=== PATIENT | male | born 1940 | race Asian ===

== ENCOUNTER 2021-06-01 13:22 | Emergency (ER) | payer MEDICARE, OTHER ==
[~2021-06-01] VITALS: Ht 170.2 cm; Wt 68.0 kg
--- NOTE | 2021-06-01 13:30 | NUR ---
DR CRONIN MADE AWARE OF PT ALOC, STATES HE WILL PLACE HEAD CT. CT CALLED FOR STAT HEAD CT
[2021-06-01 13:34] VITALS: BP 126/73
--- NOTE | 2021-06-01 13:40 | NUR ---
80 y/o M ARMANDO from street in the [facility] for ALOC. Per EMS, patient unable to verbalize complaint due to being Estonian speaking. Upon assessment, patient able to follow basic commands and reports he is hard of hearing. Reports headache and pain to R knee, states he did not fall. Unable to obtain pain assessment, history, allergies, medications. No trauma noted to head, neck, back, UE/LE. AccuChek 104. Patient with diaper. PMH/Sx/Meds: Unable to obtain NKA
--- NOTE | 2021-06-01 13:40 | NUR ---
EMT at bedside for EKG.
--- NOTE | 2021-06-01 13:45 | NUR ---
Lab at bedside.
--- NOTE | 2021-06-01 13:53 | NUR ---
PT BEING TAKEN TO CT AT THIS TIME
[2021-06-01] MEDS ORDERED: NACL 0.9% 1,000 ML IV ONE (14:00)
--- NOTE | 2021-06-01 14:06 | NUR ---
Patient returned from CT via gurney; placed back onto pvc monitor.
[2021-06-01 14:35] LABS: BASOPHILS # (AUTO) 0.1 K/uL (0.00-0.22); BASOPHILS % (AUTO) 0.8 % (0.0-2.0); EOSINOPHILS # (AUTO) 0.2 K/uL (0-0.4); EOSINOPHILS % (AUTO) 2.9 % (0.0-4.0); HEMATOCRIT 38.8 % (36-52); HEMOGLOBIN 12.8 g/dL (12.0-18.0); LYMPHOCYTES # (AUTO) 1.5 K/uL (2.0-11.5); LYMPHOCYTES % (AUTO) 21.8 % (20.5-51.1); MEAN CORPUSCULAR HEMOGLOBIN 31 pg (27-31); MEAN CORPUSCULAR HGB CONC 33 g/dL (33-37); MEAN CORPUSCULAR VOLUME 92.6 fL (80-94); MONOCYTES # (AUTO) 0.5 K/uL (0.8-1.0); MONOCYTES % (AUTO) 7.7 % (1.7-9.3); NEUTROPHILS # (AUTO) 4.5 K/uL (1.8-7.7); NEUTROPHILS % (AUTO) 66.8 % (42.2-75.2); PLATELET COUNT (AUTO) 309 K/uL (140-450); RED BLOOD CELL COUNT(AUTO) 4.19 MIL/uL (4.20-6.10); RED CELL DISTRIBUTION WIDTH 13.2 % (11.6-13.7); WHITE BLOOD COUNT (AUTO) 6.8 K/uL (4.8-10.8)
--- NOTE | 2021-06-01 14:50 | NUR ---
Malika richmond, urine sample collected, walked to lab and handed to CPT.
[2021-06-01 15:11] LABS: APPEARANCE,URINE CLEAR (CLEAR); BILIRUBIN,URINE NEGATIVE (NEGATIVE); BLOOD, URINE NEGATIVE (NEGATIVE); LEUKOCYTE ESTERASE ,URINE NEGATIVE (NEGATIVE); NITRITE, URINE NEGATIVE (NEGATIVE); PH,URINE 6.5 (5.0-9.0); UGLUCOSE NEGATIVE (NEGATIVE)
[2021-06-01 15:11] LABS: ALBUMIN 2.9 g/dL (3.4-5.0); ANION GAP 6.4 (8-16); ASPARTATE AMINOTRANSFERASE 19 U/L (15-37); CARBON DIOXIDE 31.3 mmol/L (21-32); CHLORIDE 104 mmol/L (98-107); CREATININE 0.9 mg/dL (0.6-1.3); GLUCOSE 105 mg/dL (74-106); POTASSIUM 4.7 mmol/L (3.5-5.1); SODIUM SERUM 137 mmol/L (136-145); TOTAL BILIRUBIN 0.4 mg/dL (0.0-1.0); UREA NITROGEN, BLOOD 11 mg/dL (7-18)
[2021-06-01 15:22] LABS: COLOR,URINE YELLOW (YELLOW)
--- NOTE | 2021-06-01 15:35 | NUR ---
Patient pulled out gown, IV, and monitoring specialist. Bleeding controlled by 2x2 gauze. Patient reoriented to bed. Linens, gown and diaper changed.
--- NOTE | 2021-06-01 15:36 | NUR ---
Spoke with Charles (son) in who does not remember med hx but will return in 10m with information. Son states father has history of walking out of home and has form of memory loss. Unable to obtain PMH/Meds outside of DM. Son at bedside states father is acting appropriately and is normally able to ambulate to around home.
[2021-06-01 15:55] VITALS: BP 172/73
--- NOTE | 2021-06-01 16:04 | NUR ---
Contacted son for transportation statse he will be here in 10 minutes.
--- NOTE | 2021-06-01 16:05 | NUR ---
Patient able to demonstrate ability to ambulate with assistance. Denies dizziness, loss of balance.
--- NOTE | 2021-06-01 16:20 | NUR ---
Patient discharged with v/s stable. Written and verbal after care instructions given and explained. Patient verbalized understanding. Wheel Chair Assisted with to car by son and mother. All questions addressed prior to discharge. Advised to follow up with PMD.
[2021-06-01 17:34] LABS: BARBITURATE, URINE NEGATIVE ng/ml (NEG <=200); BENZODIAZEPINE, URINE NEGATIVE ng/mL (NEG <=200); CANNABINOID, URINE NEGATIVE ng/mL (NEG <=50); COCAINE, URINE NEGATIVE ng/mL (NEG <=300); OPIATE, URINE NEGATIVE ng/mL (NEG <=2000); PHENCYCLIDINE SCREEN,URINE NEGATIVE ng/mL (NEG <=25)
== END 2021-06-01 16:20 | disposition home or self-care (01) ==
LOC: MED 13:22
DX: R41.82 Altered mental status, unspecified (principal); F03.90 Unspecified dementia, unspecified severity, without behavioral disturbance, psychotic disturbance, mood disturbance, and anxiety; R94.31 Abnormal electrocardiogram [ECG] [EKG]
CPT/HCPCS: 36415; 70450; 71045; 80053; 80305; 81003; 82140; 83880; 84484; 85025; 85610; 85730; 87426; 93005; 96360; 99285; G0482; J7030

== ENCOUNTER 2021-06-13 09:42 | Emergency (ER) | payer MEDICARE, OTHER ==
[~2021-06-13] VITALS: Ht 154.9 cm; Wt 71.2 kg
[2021-06-13 09:53] VITALS: BP 146/78
--- NOTE | 2021-06-13 09:57 | NUR ---
PT TO STAY IN TENT.
--- NOTE | 2021-06-13 10:57 | NUR ---
PT TAKEN TO XR VIA W/C.
--- NOTE | 2021-06-13 12:36 | NUR ---
NO NURSING INTERVENTIONS DONE, NO COMPLETE ASSESSMENT NEEDED.
[2021-06-13 12:56] VITALS: BP 136/72
--- NOTE | 2021-06-13 12:57 | NUR ---
Patient discharged with v/s stable. Written and verbal after care instructions given ABDOMINAL PAIN and explained. Patient verbalized understanding. Ambulatory with steady gait. All questions addressed prior to discharge. Advised to follow up with PMD.
== END 2021-06-13 12:57 | disposition home or self-care (01) ==
LOC: MED 09:42
DX: R14.0 Abdominal distension (gaseous) (principal); R10.9 Unspecified abdominal pain
CPT/HCPCS: 71045; 99283; Q0092

== ENCOUNTER 2022-03-31 11:15 | Inpatient (IN) | payer OTHER, MEDICARE ==
[~2022-03-31] VITALS: Ht 167.6 cm; Wt 51.7 kg
[~2022-03-31 11:15] MED LIST: MIRABULK PO; PANT40EC PO
[2022-03-31 11:22] VITALS: BP 136/57
[2022-03-31 12:23] LABS: BASOPHILS % (AUTO) 0.7 % (0.0-2.0); EOSINOPHILS # (AUTO) 0.2 K/uL (0-0.4); EOSINOPHILS % (AUTO) 2.9 % (0.0-4.0); HEMATOCRIT 27.9 % (36-52); HEMOGLOBIN 8.3 g/dL (12.0-18.0); LYMPHOCYTES # (AUTO) 1.6 K/uL (2.0-11.5); LYMPHOCYTES % (AUTO) 26.7 % (20.5-51.1); MEAN CORPUSCULAR HEMOGLOBIN 18 pg (27-31); MEAN CORPUSCULAR HGB CONC 30 g/dL (33-37); MEAN CORPUSCULAR VOLUME 60.1 fL (80-94); MONOCYTES # (AUTO) 0.5 K/uL (0.8-1.0); MONOCYTES % (AUTO) 7.6 % (1.7-9.3); NEUTROPHILS # (AUTO) 3.7 K/uL (1.8-7.7); NEUTROPHILS % (AUTO) 62.1 % (42.2-75.2); PLATELET COUNT (AUTO) 480 K/uL (140-450); RED BLOOD CELL COUNT(AUTO) 4.64 MIL/uL (4.20-6.10); RED CELL DISTRIBUTION WIDTH 21.5 % (11.6-13.7); WHITE BLOOD COUNT (AUTO) 5.9 K/uL (4.8-10.8)
--- NOTE | 2022-03-31 12:40 | NUR ---
81 y/o male biba from home with c/o generalized weakness x 1 week. Per EMS patient "speaks Nepali and family was not able to provide much medical history aurelia to language barrier." Patient is also hard of hearing. Medical Hisotry: High Cholesterol NKDA
[2022-03-31 12:41] LABS: ANION GAP 9.3 (8-16); CARBON DIOXIDE 26.8 mmol/L (21-32); CHLORIDE 104 mmol/L (98-107); CREATININE 0.7 mg/dL (0.6-1.3); GLUCOSE 95 mg/dL (74-106); POTASSIUM 4.1 mmol/L (3.5-5.1); SODIUM SERUM 136 mmol/L (136-145); UREA NITROGEN, BLOOD 17 mg/dL (7-18)
[2022-03-31] MEDS ORDERED: NACL 0.9% 250 ML IV ONE (13:20)
--- NOTE | 2022-03-31 13:41 | NUR ---
Patient is taken via gurney to imaging.
--- NOTE | 2022-03-31 13:53 | NUR ---
Patient returned from imaging.
[2022-03-31 14:24] LABS: ACETAMINOPHEN < 0.5 ug/ml (10-30); ALBUMIN 2.2 g/dL (3.4-5.0); ASPARTATE AMINOTRANSFERASE 28 U/L (15-37); BILIRUBIN,DIRECT 0.1 mg/dL (0.0-0.3); SALICYLATE < 2.8 mg/dL (2.8-20.0); TOTAL BILIRUBIN 0.3 mg/dL (0.0-1.0)
--- NOTE | 2022-03-31 14:35 | NUR ---
Patient is being redirected to stay in bed and ask for assistance if needed. Patient has needs met.
--- NOTE | 2022-03-31 15:02 | NUR ---
Used Voyce translation to inform patient that labs are still pending and he is not up for discharge yet.
[2022-03-31] MEDS ORDERED: HALOPERIDOL IM 5 MG/ML VIAL IM ONE (15:55)
[2022-03-31] MEDS ORDERED: HALOPERIDOL IM 5 MG/ML VIAL ONE (15:58)
[2022-03-31] MEDS ORDERED: NACL 0.9% 1,000 ML IV ONE ×2 (16:35→16:40)
--- NOTE | 2022-03-31 17:30 | NUR ---
Obtained urine sample and walked to lab handed to CPT. Lisa
[2022-03-31 17:45] LABS: APPEARANCE,URINE CLEAR (CLEAR); BILIRUBIN,URINE NEGATIVE (NEGATIVE); BLOOD, URINE NEGATIVE (NEGATIVE); COLOR,URINE YELLOW (YELLOW); LEUKOCYTE ESTERASE ,URINE NEGATIVE (NEGATIVE); NITRITE, URINE NEGATIVE (NEGATIVE); PH,URINE 6.5 (5.0-9.0); UGLUCOSE NEGATIVE (NEGATIVE)
--- NOTE | 2022-03-31 18:19 | NUR ---
Patient pulled out his IV. Will re-insert new IV line for fluids.
[2022-03-31 18:47] LABS: BARBITURATE, URINE NEGATIVE ng/ml (NEG <=200); BENZODIAZEPINE, URINE NEGATIVE ng/mL (NEG <=200); CANNABINOID, URINE NEGATIVE ng/mL (NEG <=50); COCAINE, URINE NEGATIVE ng/mL (NEG <=300); OPIATE, URINE NEGATIVE ng/mL (NEG <=2000); PHENCYCLIDINE SCREEN,URINE NEGATIVE ng/mL (NEG <=25)
[2022-03-31] MEDS ORDERED: ACETAMINOPHEN 325 MG TAB PO PRN (19:45)
[2022-03-31] MEDS ORDERED: MAGNESIUM OXIDE 400 MG TAB PO PRN (19:45)
[2022-03-31] MEDS ORDERED: VANCOMYCIN PER PHARMACY MC PRN (19:45)
[2022-03-31] MEDS ORDERED: ONDANSETRON 4 MG/2 ML VIAL IVP PRN (19:45)
[2022-03-31] MEDS ORDERED: MAG SULF 2000 MG/WATER PREMIX 50 ML IV PRN (19:45)
[2022-03-31] MEDS ORDERED: KCL 20 MEQ/WATER INJ PREMIX 200 ML IV PRN (19:45)
--- NOTE | 2022-03-31 19:48 | NUR ---
yi swab collected and taken to lab. pt iv wrapped with coband. x2 side rails and application security developer at bedside.
[2022-03-31] MEDS ORDERED: VANCOMYCIN 1GM/DEXT 5% PREMIX 200 ML IV ONE (21:00)
--- NOTE | 2022-03-31 22:00 | NUR ---
PT WANTED TO SIT IN WHEELCHAIR
[2022-03-31] MEDS ORDERED: cefTRIAXone 1,000 MG VIAL ONE (22:51)
[2022-03-31] MEDS ORDERED: VANCOMYCIN 1,000 MG VIAL ONE (22:51)
--- NOTE | 2022-03-31 23:49 | NUR ---
CALLED DR LUNA FOR PRN ANXIETY MED
[2022-04-01] MEDS ORDERED: LORazepam 2 MG/ML VIAL IM/IVP PRN (00:05)
[2022-04-01] MEDS ORDERED: LORazepam 2 MG/ML VIAL ONE (00:10)
--- NOTE | 2022-04-01 00:20 | NUR ---
HELPED PT BACK TO BED. PERFORMED AKHIL CARE AND PROVIDED NEW BRIEF. X2 SIDE RAILS UP FOR SAFETY. CURTAINS OPEN TO VIEW PT
--- NOTE | 2022-04-01 00:27 | NUR ---
CALLED AFTER HOURS PHARMACY TO AUTHORIZE MED
--- NOTE | 2022-04-01 00:58 | NUR ---
PT CLEEPING IN BED. X2 SIDE RAILS UP. BLANKETS APPLIED AND MONITOR ON VSS. WILL CONTINUE TO MONITOR
[2022-04-01] MEDS: LORazepam 2 MG/ML VIAL IVP PRN (01:05)
--- NOTE | 2022-04-01 03:04 | NUR ---
Patient appears to be resting comfortably in bed. X2 SIDE RAILS UP FOR SAFETY Vital Signs within normal limits. Respirations even and unlabored.
--- NOTE | 2022-04-01 06:37 | NUR ---
PATIENT HAS BEEN SCREENED AND CATEGORIZED MODERATE NUTRITION RISK. PATIENT WILL BE SEEN WITHIN 3-5 DAYS OF ADMISSION. 04/03/22-04/05/22 TJ ROWE MS, RDN
[2022-04-01 07:28] LABS: BASOPHILS % (AUTO) 0.7 % (0.0-2.0); EOSINOPHILS # (AUTO) 0.1 K/uL (0-0.4); EOSINOPHILS % (AUTO) 1.3 % (0.0-4.0); HEMATOCRIT 28.8 % (36-52); HEMOGLOBIN 8.6 g/dL (12.0-18.0); LYMPHOCYTES # (AUTO) 1.8 K/uL (2.0-11.5); LYMPHOCYTES % (AUTO) 28.2 % (20.5-51.1); MEAN CORPUSCULAR HEMOGLOBIN 18 pg (27-31); MEAN CORPUSCULAR HGB CONC 30 g/dL (33-37); MEAN CORPUSCULAR VOLUME 60.8 fL (80-94); MONOCYTES # (AUTO) 0.9 K/uL (0.8-1.0); MONOCYTES % (AUTO) 13.4 % (1.7-9.3); NEUTROPHILS # (AUTO) 3.6 K/uL (1.8-7.7); NEUTROPHILS % (AUTO) 56.4 % (42.2-75.2); PLATELET COUNT (AUTO) 465 K/uL (140-450); RED BLOOD CELL COUNT(AUTO) 4.74 MIL/uL (4.20-6.10); RED CELL DISTRIBUTION WIDTH 21.5 % (11.6-13.7); WHITE BLOOD COUNT (AUTO) 6.4 K/uL (4.8-10.8)
[2022-04-01] MEDS ORDERED: NOREPINEPHRINE 4 MG/4 ML VIAL IV ONE ×2 (08:05→08:39)
[2022-04-01 08:13] LABS: ANION GAP 10.8 (8-16); CHLORIDE 104 mmol/L (98-107); CREATININE 0.5 mg/dL (0.6-1.3); GLUCOSE 87 mg/dL (74-106); POTASSIUM 3.8 mmol/L (3.5-5.1); SODIUM SERUM 134 mmol/L (136-145); UREA NITROGEN, BLOOD 11 mg/dL (7-18)
[2022-04-01] MEDS: ENOXAPARIN 40 MG/0.4 ML SYR SUBQ SCH (09:02)
--- NOTE | 2022-04-01 19:16 | NUR ---
Pt report given to DALE RUBI. Transfer of care at this time.
--- NOTE | 2022-04-01 19:40 | NUR ---
REPORT CALLED TO DELANEY PITT. TRANSFER OF CARE
--- NOTE | 2022-04-01 19:57 | NUR ---
Patient will be admitted to care of Warner Campbell. Admited to Telemetry. Will go to room 116. Belongings list completed. Report to raymond Meehan. transfer of care.
[2022-04-01 20:00] VITALS: BP 151/75
--- NOTE | 2022-04-01 20:00 | NUR ---
GET THE REPORT FROM ER NURSE SHUN, PATIENT IS LYING ON BED, PATIENT IS ALERT ORIENTED X2 , CALL LIGHT IS WITHIN THE REACH, WILL CONTINUE TO MONITOR PATIENT.
--- NOTE | 2022-04-01 20:30 | NUR ---
The patient's care was reviewed and supervised by Reshma Chi RN.
[2022-04-01] MEDS ORDERED: cefTRIAXone 1,000 MG VIAL ONE (22:15)
[2022-04-02] VITALS: BP 153/63
--- NOTE | 2022-04-02 01:00 | NUR ---
PATIENT IS LYING ON BED, VITAL SIGN IS WITHIN THE NORMAL RANGE, NO ANY COMPLAIN OF PAIN OR SHORTNESS OF BREATH AT THIS TIME,CALL LIGHT IS WITHIN THE REACH,WILL CONTINUE TO MONITOR PATIENT.
[2022-04-02] MEDS ORDERED: VANCOMYCIN 1,000 MG VIAL ONE (01:28)
[2022-04-02] MEDS: VANCOMYCIN 750 MG in DEXTROSE 5% 250 ML IV SCH ×2 (01:48→23:00)
--- NOTE | 2022-04-02 01:59 | NUR ---
PATIENT IS RECEIVING VANCOMYCIN 750MG , ON [facility] HAS 1000MG , GET ONE VANCOMYCIN 1000MG FROM [facility] AND DILUTED WITH 10ML NS AND WITHDRAW 7.5ML AND MIX WITH D5% NS 250 ML BEG AND STARTED AT 165ML/HOUR PER DOCTOR ORDER,CALL LIGHT IS WITHIN THE REACH,WILL CONTINUE TO MONITOR PATIENT.
[2022-04-02 04:00] VITALS: BP 157/67
--- NOTE | 2022-04-02 04:58 | NUR ---
PATIENT IS LYING ON BED, VITAL SIGN IS WITHIN THE NORMAL RANGE,CALL LIGHT IS WITHIN THE REACH,WILL CONTINUE TO MONITOR PATIENT.
--- NOTE | 2022-04-02 07:25 | NUR ---
GAVE THE REPORT TO MORNING NURSE MARTINE FOR CONTINUOS OF CARE, PATIENT IS STABLE.
[2022-04-02 08:00] VITALS: BP 126/66
--- NOTE | 2022-04-02 08:00 | NUR ---
RECEIVE ENDORSEMENT FROM PM SHIFT NURSE THAT PATIENT IS CONFUSED. SITTING AT BED EDGE, NURSE PLACE PATIENT BACK TO BED. PIV 24 AT R. HAND SALINE LOCK. WILL CONTINUE TO MONITOR.
[2022-04-02] MEDS: ENOXAPARIN 40 MG/0.4 ML SYR SUBQ SCH (09:50)
--- NOTE | 2022-04-02 10:17 | NUR ---
DR. LUNA IS HERE AND SAW PATIENT. AFTER DOCTOR SEE PATIENT, INFORM NURSE THAT PATIENT'S IV IS OUT. START NEW IV 24G AT L. FOREARM. WILL CONTINUE TO MONITOR.
[2022-04-02 12:00] VITALS: BP 105/66
[2022-04-02 16:00] VITALS: BP 150/81
--- NOTE | 2022-04-02 19:46 | NUR ---
ENDORSE PT OT PM SHIFT NURSE WHILE PATIENT REST ON BED. PIV 24 AT R. HAND SALINE LOCK, VITAL WNL., STABLE
[2022-04-02 20:00] VITALS: BP 136/75
[2022-04-03] VITALS: BP 142/74
--- NOTE | 2022-04-03 02:00 | NUR ---
PT IS ASLEEP.
--- NOTE | 2022-04-03 03:37 | NUR ---
EKG ASSESSMENT NOT ABLE TO DO AT 2000 INSTEAD OF 2200 DUE TO PT NOT TOLERATE. CURRENTLY PT IS CONFUSED.
[2022-04-03 04:00] VITALS: BP 147/65
--- NOTE | 2022-04-03 04:00 | NUR ---
PT IS CONFUSE.
--- NOTE | 2022-04-03 07:20 | NUR ---
ENDORSED TO DAY SHIFT NURSE FOR CONTINUITY OF PT CARE. PATIENT IS STABLE.
[2022-04-03 07:29] LABS: ANION GAP 17.3 (8-16); CHLORIDE 99 mmol/L (98-107); CREATININE 0.6 mg/dL (0.6-1.3); GLUCOSE 73 mg/dL (74-106); POTASSIUM 3.3 mmol/L (3.5-5.1); SODIUM SERUM 133 mmol/L (136-145); UREA NITROGEN, BLOOD 9 mg/dL (7-18)
[2022-04-03 07:32] LABS: BASOPHILS # (AUTO) 0.1 K/uL (0.00-0.22); BASOPHILS % (AUTO) 1.1 % (0.0-2.0); EOSINOPHILS # (AUTO) 0.1 K/uL (0-0.4); EOSINOPHILS % (AUTO) 1.1 % (0.0-4.0); HEMATOCRIT 28.7 % (36-52); HEMOGLOBIN 8.8 g/dL (12.0-18.0); LYMPHOCYTES % (AUTO) 17.3 % (20.5-51.1); MEAN CORPUSCULAR HEMOGLOBIN 18 pg (27-31); MEAN CORPUSCULAR HGB CONC 31 g/dL (33-37); MEAN CORPUSCULAR VOLUME 59.8 fL (80-94); MONOCYTES # (AUTO) 0.7 K/uL (0.8-1.0); MONOCYTES % (AUTO) 12.4 % (1.7-9.3); NEUTROPHILS # (AUTO) 3.8 K/uL (1.8-7.7); NEUTROPHILS % (AUTO) 68.1 % (42.2-75.2); PLATELET COUNT (AUTO) 543 K/uL (140-450); WHITE BLOOD COUNT (AUTO) 5.5 K/uL (4.8-10.8)
[2022-04-03 08:00] VITALS: BP 147/75
--- NOTE | 2022-04-03 08:00 | NUR ---
RECEIVE ENDORSEMENT FROM PM SHIFT NURSE THAT PATIENT IS CONFUSED. PIV 24L. FOREARM SALINE LOCK. WILL CONTINUE TO MONITOR.
--- NOTE | 2022-04-03 08:32 | NUR ---
PT. WITH LOW JORDI SCALE AT MODERATE TO HIGH RISK, CONTINUE TO FOLLOW PRESSURE INJURY PREVENTION INTERVENTIONS. -POSITIONING: TURN AND REPOSITION PATIENT Q 2H OR SOONER USE PILLOWS TO KEEP BONY PROMINENCES FROM DIRECT CONTACT WITH SURFACES USE REPOSITIONING WEDGES TO PROVIDE 30-DEGREE ANGLE FOR SIDE LYING POSITIONS OFFLOADING OR FOAM DRESSING TO ALL TUBING TO PREVENT MEDICAL DEVICES RELATED PRESSURE INJURY -RE-EVALUATING AND MANAGING INCONTINENCE MONITOR SKIN CONDITION DURING POSITION CHANGE DO NOT MASSAGE REDNESS, BONY PROMINENCES FREQUENT AKHIL-CARE AND PROVIDE BARRIER CREAMS PRN IF SOILING MOISTURE CONTROL BY OFFER BED ZMABRANO/URINAL /ABSORBENT PAD TO WICK AND HOLD MOISTURE KEEP SKIN DRY AND PROTECT FROM FRICTION -MANAGE FRICTION/SHEAR/MOBILITY KEEP HOB AT THE LOWEST LEVEL OF ELEVATION NO MORE THAN 30 DEGREE UNLESS OTHERWISE CONTRAINDICATED USE LIFT SHEET OR TRANSFER DEVICE TO MOVE PATIENT AND PREVENT LATERAL SHEER. PROTECT HEELS, ELBOWS BONY PROMINENCES WITH SKIN BERRIES OR FOAM DRESSING IF EXPOSED TO FRICTION OFFLOAD BILATERAL HEELS BY PLACING PILLOWS UNDER CALVES AT ALL TIMES, UNLESS OTHERWISE CONTRAINDICATED -PRESSURE REDISTRIBUTION SURFACE THERAPY JOHANN ISOFLEX MATTRESS -NUTRITION: PLEASE FOLLOW RD RECOMMENDATIONS AND OFFER NUTRITION SUPPLEMENTS IF ORDERED. PLEASE CONTACT WOUND CARE NURSE FOR ANY QUESTION AND CHANGE OF WOUND CONDITION.
[2022-04-03] MEDS: POTASSIUM CHLORIDE 10 MEQ TABER PO PRN (09:46)
[2022-04-03] MEDS: ENOXAPARIN 40 MG/0.4 ML SYR SUBQ SCH (09:51)
--- NOTE | 2022-04-03 11:26 | NUR ---
PATIENT'S NEIGHBOR CALLED FOR UPDATE PATIENT'S STATUS. NURSE INFORM THAT PATIENT'S IS VERY DEHYDRATED BECAUSE PATIENT'S VENOUS IS VERY FLAT AND NURSE ALMOST HAVE HARD TIME TO START IV. PATIENT IS POOR EATER BECAUSE HE WOULD NOT DRINK ANY WATER FROM [place]. NURSE ASKED SINCE WHEN PATIENT HAS NOT BEEN EAT POORLY. PER NEIGHBOR , PATIENT HAS BEEN ON VERY SMALL AMOUNT ENSURE FOR MORE THAN WEEKS. NURSE NOTE THAT PATIENT'S FOOT DID NOT WASH FOR VERY LONG BECAUSE PATIENT'S FOOT HAS VERY THICK SKIN RESIDUAL ATTACHED ON. NEIGHBOR STATS PATIENT'S HAS BEEN TAKE CARE PATIENT, AND 'S COVID HOME TEST KID RESULT WAS NEGATIVE YESTERDAY. FEW MINUTES LATER PATIENT'S DAUGHTER CALL TO QUESTION WHY HER FATHER'S CONDITION HAS NOT IMPROVE? NURSE REPORT THAT WE TREAT PATIENT W/ ANTIBIOTIC, EVALUATING PATIENT'S SWALLOWING ABILITY AND PHICAL STRENGTH. WILL CONTINUE TO MONITOR.
[2022-04-03 12:00] VITALS: BP 144/70
--- NOTE | 2022-04-03 14:18 | NUR ---
DC PLANNING: THE PATIENT PRESENTED TO THE ED AFTER FAMILY CALLED 911 RELATED TO ALOC AND WEAKNESS. H/O DM, HTN, LEFT HEMIARTHROPLASTY. COVID RAPID POSITIVE, LABS AND CT HEAD NEGATIVE FOR ACUTE FINDINGS. BLOOD CULTURES PENDING, STARTED ON VANCO AND ROCEPHIN IV, ATIVAN FOR AGITATION. ORDERS FOR SPEECH AND PHYSICAL THERAPY EVALUATIONS. IMELDA SPOKE WITH THE PATIENTS MAURICIO HU BY PHONE AND CONFIRMED THE PATIENTS ADDRESS. THE PATIENT LIVES WITH HIS , SON AND DAUGHTER. HE HAS A PMD BUT MAYTE COULDN'T REMEMBER THEIR NAME, STATES HIS FATHER TALKS TO THE OFFICE WHEN HE NEEDS PRESCRIPTION REFILLS AND SPOKE WITH THEM 2 WEEKS AGO. THE PATIENT AMBULATES SHORT DISTANCES IN THE HOUSE WITH SBA AND USES A FWW. HE ALSO HAS A WC, DOES NOT HAVE A GLUCOMETER AND DOES NOT CHECK HIS BLOOD SUGARS BUT HIS CHECKS HIS BLOOD PRESSURE. THE PATIENT HAS NOT BEEN IN A SNF OR HAD HOME HEALTH. HE SOMETIMES REQUIRES HELP WITH EATING AND IS HELPED WITH HIS ADL'S. MAYTE IS IN AGREEMENT WITH THE PATIENT GOING TO A SNF IF NECESSARY, PATIENT IS ECUADOREAN SPEAKING ONLY. CM WILL FOLLOW. Addendum: 04/05/22 at 1056 by Brisa Jimenez CM DC PLANNING: ORDER RECEIVED FOR SNF PLACEMENT, IMELDA SPOKE WITH THE PATIENTS MAURICIO HU TO DISCUSS REFERRING PATIENT TO [facility] THEY HAVE SOME [place]UADOREAN SPEAKING STAFF. MAYTE IS IN AGREEMENT, REFERRAL SENT. CM WILL FOLLOW. Addendum: 04/05/22 at 1412 by Brisa Jimenez CM DC PLANNING: [facility] UNABLE TO ACCEPT THE PATIENT BECAUSE OF POSITIVE COVID STATUS. REFERRED TO [facility], THEY CAN ACCEPT WITH POTENTIAL DC IN AM. WILL CLARIFY WITH ATTENDING MD REGARDING CONTINUATION OF ABX, IV VS PO. IMELDA WILL FOLLOW. Addendum: 04/06/22 at 1232 by Brisa Jimenez CM DC PLANNING: CM FAXED SNF AND DC ORDERS TO MAYA AT [facility], WAITING FOR AUTHORIZATION FOR [facility] TRANSFER AND TRANSPORT. PATIENT ASSIGNED ROOM 103[address] AT [facility], DR MARCH TO FOLLOW. NUMBER TO CALL REPORT IS [phone]. IMELDA SPOKE WITH THE PATIENTS SON MAYTE AND GAVE HIM THE ADDRESS AND PHONE NUMBER FOR [facility]. MAYTE IS IN AGREEMENT WITH SENDING HIS FATHER TO THE FACILITY AND UNDERSTANDS THAT THEY HAVE A COVID UNIT. CM WILL FOLLOW. Addendum: 04/06/22 at 1417 by Brisa Jimenez DC PLANNING: REQUEST SENT TO [facility] FOR TRANSPORT ([phone]), [facility] AUTH FOR KASEY PARKS [id number], AUTH FOR ONEL CHAVES [id number]. CM WILL FOLLOW.
[2022-04-03 16:00] VITALS: BP 139/65
--- NOTE | 2022-04-03 16:46 | NUR ---
04/03/2022 RD INITIAL ASSESSMENT COMPLETED. PLEASE REFER TO NUTRITION ASSESSMENT UNDER CARE ACTIVITY FOR ESTIMATED NUTRITIONAL NEEDS. 1.WHEN/IF MEDICALLY APPROPRIATE, RECOMMEND CLEAR LIQUID DIET OR PER SPEECH THERAPY EVAL RECOMMENDATION. 2.MONITOR NPO STATUS. 3.RD TO FOLLOW-UP IN 2-3 DAYS PATIENT IS HIGH RISK. CARL CANDELARIO RD
--- NOTE | 2022-04-03 19:07 | NUR ---
SPEECH THERAPIST HERE AND EVALUATE PATIENT'S SWOLLEN ABILITY. PATIENT FAIL EVALUATION. SPEECH THERAPIST RECOMMENDATION TO USE TUBE FEEDING. SINCE PATIENT IS COVID POSITIVE, SPEECH THERAPIST SUGGESTING TO USE NG INSTEAD G-TUBE FOR NOW, AND HOPE PATIENT CAN GET RIDE OF TUBE AFTER COVID RECOVER. CURRENTLY, PATIENT IS PULLING EVERYTHING THAT HE CAN PUT HANDS ON. WILL F/U.
--- NOTE | 2022-04-03 19:54 | NUR ---
ENDORSE PT TO PM SHIFT NURSE THAT PATIENT IS CONFUSED, NPO EXCEPT MEDS, JUST FAIL ST EVAL, PIV 24L. FOREARM SALINE LOCK.
--- NOTE | 2022-04-03 19:55 | NUR ---
GET THE REPORT FROM MORNING NURSE MARTINE , PATIENT IS LYING ON BED, PATIENT IS CONFUSED , CALL LIGHT IS WITHIN THE REACH,WILL CONTINUE TO MONITOR PATIENT.
[2022-04-03 20:00] VITALS: BP 109/64
[2022-04-03] MEDS: LORazepam 2 MG/ML VIAL IVP PRN (21:07)
--- NOTE | 2022-04-03 21:08 | NUR ---
PATIENT IS LYING ON BED, VITAL SIGN IS WITHIN THE NORMAL RANGE, ALL SCHEDULE MEDICATION IS GIVEN PER DOCTOR ORDER, PATIENT IS AGITATED, GAVE ATIVAN 1MG 0.5ML IV PRN FOR AGITATION PER DOCTOR ORDER, CALL LIGHT IS WITHIN THE REACH, WILL CONTINUE TO MONITOR PATIENT.
[2022-04-03] MEDS: VANCOMYCIN 750 MG in DEXTROSE 5% 250 ML IV SCH (22:04)
[2022-04-04] VITALS: BP 124/52
--- NOTE | 2022-04-04 00:30 | NUR ---
PATIENT IS LYING ON BED, VITAL SIGN IS WITHIN THE NORMAL RANGE, CALL LIGHT IS WITHIN THE REACH,WILL CONTINUE TO MONITOR PATIENT.
[2022-04-04 04:00] VITALS: BP 151/84
--- NOTE | 2022-04-04 04:28 | NUR ---
PATIENT IS LYING ON BED, VITAL SIGN IS WITHIN THE NORMAL RANGE, NO ANY COMPLAIN OF PAIN OR SHORTNESS OF BREATH AT THIS TIME, CALL LIGHT IS WITHIN THE REACH, WILL CONTINUE TO MONITOR PATIENT
--- NOTE | 2022-04-04 06:12 | NUR ---
PATIENT IS LYING ON BED, ALL SCHEDULE MEDICATION IS GIVEN PER DOCTOR ORDER, CALL LIGHT IS WITHIN THE REACH, WILL CONTINUE TO MONITOR PATIENT.
[2022-04-04 07:10] LABS: BASOPHILS # (AUTO) 0.1 K/uL (0.00-0.22); BASOPHILS % (AUTO) 0.7 % (0.0-2.0); EOSINOPHILS # (AUTO) 0.1 K/uL (0-0.4); EOSINOPHILS % (AUTO) 0.9 % (0.0-4.0); HEMATOCRIT 27.6 % (36-52); HEMOGLOBIN 8.3 g/dL (12.0-18.0); LYMPHOCYTES # (AUTO) 1.2 K/uL (2.0-11.5); LYMPHOCYTES % (AUTO) 14.2 % (20.5-51.1); MEAN CORPUSCULAR HEMOGLOBIN 18 pg (27-31); MEAN CORPUSCULAR HGB CONC 30 g/dL (33-37); MEAN CORPUSCULAR VOLUME 60.2 fL (80-94); MONOCYTES # (AUTO) 1.1 K/uL (0.8-1.0); MONOCYTES % (AUTO) 12.9 % (1.7-9.3); NEUTROPHILS # (AUTO) 5.8 K/uL (1.8-7.7); NEUTROPHILS % (AUTO) 71.3 % (42.2-75.2); PLATELET COUNT (AUTO) 531 K/uL (140-450); RED BLOOD CELL COUNT(AUTO) 4.58 MIL/uL (4.20-6.10); WHITE BLOOD COUNT (AUTO) 8.2 K/uL (4.8-10.8)
--- NOTE | 2022-04-04 07:16 | NUR ---
GAVE THE REPORT TO MORNING NURSE MARTINE FOR CONTINUOS OF CARE, PATIENT IS STABLE
[2022-04-04 07:24] LABS: ANION GAP 15.4 (8-16); CHLORIDE 103 mmol/L (98-107); CREATININE 0.7 mg/dL (0.6-1.3); GLUCOSE 82 mg/dL (74-106); POTASSIUM 3.4 mmol/L (3.5-5.1); SODIUM SERUM 136 mmol/L (136-145); UREA NITROGEN, BLOOD 10 mg/dL (7-18)
[2022-04-04 08:00] VITALS: BP 150/70
--- NOTE | 2022-04-04 08:00 | NUR ---
RECEIVE ENDORSEMENT FROM PM SHIFT NURSE THAT PATIENT IS CONFUSED, NPO EXCEPT MEDS, PIV 24L. FOREARM SALINE LOCK. ANOTHER ST SERVICE REQUESTED. WILL CONTINUE TO MONITOR
[2022-04-04] MEDS: ENOXAPARIN 40 MG/0.4 ML SYR SUBQ SCH (09:53)
[2022-04-04] MEDS: POTASSIUM CHLORIDE 10 MEQ TABER PO PRN (09:54)
[2022-04-04] MEDS: DEXT 5% / NACL 0.45% 1,000 ML IV SCH (10:36)
[2022-04-04 12:00] VITALS: BP 123/61
[2022-04-04 16:00] VITALS: BP 125/64
--- NOTE | 2022-04-04 16:01 | NUR ---
PHYSICAL THERAPY CO-SIGN The Physical Therapy Progress Notes documented by Cold Molding Press Operator have been reviewed. Reviewed/Co-Signed by: Katelynn Stacy Documentation Done by: SHAKIR BONILLA PTA Addendum: 04/04/22 at 1601 by Katelynn Stacy PT Amended: Links added.
--- NOTE | 2022-04-04 16:21 | NUR ---
FOUND PATIENT ON THE FLOOR WITH NO VISIBLE INJURY. IV INFUSING, INCIDENT REPORT WILL FILE SHORTLY. WILL CONTINUE TO MONITOR PATIENT.
--- NOTE | 2022-04-04 19:26 | NUR ---
RECEIVED BEDSIDE REPORT FROM DAY SHIFT NURSE, MARTINE, FOR CONTINUITY OF PATIENT CARE.
--- NOTE | 2022-04-04 19:38 | NUR ---
ENDORSE PT TO PM SHIFT NURSE THAT PATIENT IS CONFUSED, NEW ORDER PUREE W/ HONEY THICKER LIQUID, D5 1/2 AT 50ML/HR INFUSING VIA PIV 24L. FOREARM.
[2022-04-04 20:00] VITALS: BP 130/70
[2022-04-04] MEDS ORDERED: VANCOMYCIN 1,000 MG in DEXTROSE 5% 250 ML IV SCH (23:00)
[2022-04-05 07:03] LABS: BASOPHILS # (AUTO) 0.1 K/uL (0.00-0.22); BASOPHILS % (AUTO) 0.8 % (0.0-2.0); EOSINOPHILS # (AUTO) 0.1 K/uL (0-0.4); EOSINOPHILS % (AUTO) 0.8 % (0.0-4.0); HEMATOCRIT 28.8 % (36-52); HEMOGLOBIN 8.6 g/dL (12.0-18.0); LYMPHOCYTES # (AUTO) 1.2 K/uL (2.0-11.5); LYMPHOCYTES % (AUTO) 14.1 % (20.5-51.1); MEAN CORPUSCULAR HEMOGLOBIN 18 pg (27-31); MEAN CORPUSCULAR HGB CONC 30 g/dL (33-37); MEAN CORPUSCULAR VOLUME 60.6 fL (80-94); MONOCYTES # (AUTO) 0.9 K/uL (0.8-1.0); MONOCYTES % (AUTO) 10.1 % (1.7-9.3); NEUTROPHILS # (AUTO) 6.4 K/uL (1.8-7.7); NEUTROPHILS % (AUTO) 74.2 % (42.2-75.2); PLATELET COUNT (AUTO) 572 K/uL (140-450); RED BLOOD CELL COUNT(AUTO) 4.75 MIL/uL (4.20-6.10); RED CELL DISTRIBUTION WIDTH 22.1 % (11.6-13.7); WHITE BLOOD COUNT (AUTO) 8.6 K/uL (4.8-10.8)
[2022-04-05 07:19] LABS: ANION GAP 9.3 (8-16); CARBON DIOXIDE 25.3 mmol/L (21-32); CHLORIDE 107 mmol/L (98-107); CREATININE 0.7 mg/dL (0.6-1.3); GLUCOSE 119 mg/dL (74-106); SODIUM SERUM 136 mmol/L (136-145); UREA NITROGEN, BLOOD 8 mg/dL (7-18)
[2022-04-05 07:22] LABS: POTASSIUM 5.6 mmol/L (3.5-5.1)
--- NOTE | 2022-04-05 07:40 | NUR ---
RECEIVED REPORT FROM NIGHTSHIFT NURSE FOR CONTINUITY OF CARE. PLAN OF CARE DISCUSSED, PT CURRENTLY SLEEPING. PT BEDBOUND AND CONFUSED. BREATHING EVEN, REGULAR, AND UNLABORED ON RA. NO SIGNS OF DISTRESS NOTED AT THIS TIME WITH SKIN INTACT. PT IN STABLE CONDITION.
[2022-04-05 08:00] VITALS: BP 136/78
[2022-04-05] MEDS ORDERED: SODIUM POLYSTYRENE 15 GM/60 ML UDBTL PO SCH (08:30)
--- NOTE | 2022-04-05 09:00 | NUR ---
PT VISUALLY ASSESSED AND CURRENTLY SLEEPING. PT FLACC 0 FOR PAIN, PT WAS ABLE TO SWALLOW PO KAYEXALATE WITHOUT DIFFICULTY OR COUGH.
[2022-04-05] MEDS: DEXT 5% / NACL 0.45% 1,000 ML IV SCH (09:58)
--- NOTE | 2022-04-05 10:00 | NUR ---
DC PLANNING PATIENT IS AN 81 YEAR OLD MALE ADMITTED IN THE [facility]/ED ON 03/30/2022. PATIENT WAS BROUGHT BY AMBULANCE AFTER HIS FAMILY CALL 911 RELATED TO ALOC, WEAKNESS, AND CONCERNS FOR ALTERED MENTAL STATUS. PATIENT HAS PAST MEDICAL HISTORY OF GERD AND HYPER LIPIDEMIA. SW SPOKE PATIENT'S SON MAYTE WISE AT VIA TELEPHONIC CALL TO DISCUSS PATIENT COLLATERAL INFORMATION. PATIENT'S SON CONFIRMED PATIENT'S ADDRESS AND REPORTED THAT PATIENT LIVES AT HOME WITH HIS , SON AND DAUGHTER. PATIENT HAS A POWER OF MEMBER OF PARLIAMENT IN PLACE AND IS IN NO NEED FOR ADVANCE DIRECTIVES SINCE HIS FATHER HAS HAD ALL THAT DOCUMENTATION DONE ALREADY HAVING HIS MOTHER AND HIM HIS EMERGENCY CONTAC AND MEDICAL DESICION MAKER. (PATIENT IS SPANISH SPEAKING ONLY) PER PATIENT'S SON MAYTE SHERMAN HAS A PCP RACHEL GARCIA, AND HIS LAST VISIT WITH MD WAS ABOUT 2 WEEKS AGO. PER PATIENT'S SON HE AMBULATES SHORT DISTANCES IN THE HOUSE AND HAS LIMITED ABILITY TO STAND HE USES A WALKER AND A WHEELCHAIR HIS DME AND HE IS CONSISTENT WITH MEDICATIONS MAINLY BECAUSE PATIENT'S AND FAMILY ARE GOOD ABOUT PROVIDING IT TO PATIENT ON TIME. PATIENT GETS HIS MEDICATIONS MAIL TO THEIR HOME BY THE PHARMACY. PER PATIENT'S SON HE WILL BE PICKING UP PATIENT WHEN HE IS READY FOR DC TO TAKE HOME. PARESH DISCUSS WITH PATIENT'S SON THE POSSIBILITY OF OTHER RECOMMENDATIONS FROM MD FOR SNF OR H.H AND ASK IF PATIENT HAS BEEN IN ANY SKILL NURSING FACILITY BEFORE. PER PATIENT SON HE STATED NO THAT PATIENT HAD HOME HEALTH BEFORE BUT HAS NOT BEEN IN A SNF BEFORE; HE ALSO STATED THAT HE WILL TALK TO HIS MOTHER BUT ARE IN AGREEMENT WITH THE LEVEL OF CARE [facility] DOCTORS RECOMMENDS FOR PATIENT AT DC THEY JUST WANT TO BE UPDATED WITH PLAN FOR DISCHARGE WHEN PATIENT IS READY FOR DC. PARESH INFORMED PATIENT'S SON THAT SW OR CM WILL FOLLOW UP WITH FAMILY NEEDED.
[2022-04-05] MEDS: ENOXAPARIN 40 MG/0.4 ML SYR SUBQ SCH (10:03)
--- NOTE | 2022-04-05 11:00 | NUR ---
PT ATTEMPTED TO GET OUT OF BED. PT HAD LARGE BM, BED BATH AND LINEN CHANGE PERFORMED. PT IN STABLE CONDITION.
--- NOTE | 2022-04-05 13:00 | NUR ---
PT VISUALLY ASSESSED, VISIBLY SOILED WITH MODERATE SIZED BM. BED BATH AND LINEN CHANGE PERFORMED. PT IN STABLE CONDITION.
--- NOTE | 2022-04-05 15:00 | NUR ---
PT VISUALLY ASSESSED. CURRENTLY SLEEPING, NO SIGNS OF DISTRESS NOTED. FLACC 0.
[2022-04-05 16:00] VITALS: BP 154/78
--- NOTE | 2022-04-05 16:42 | NUR ---
PHYSICAL THERAPY CO-SIGN The Physical Therapy Progress Notes documented by Emergency Detail Driver have been reviewed. Reviewed/Co-Signed by: Katelynn Stacy Documentation Done by: SHAKIR BONILLA PTA Addendum: 04/05/22 at 1642 by Katelynn Stacy PT Amended: Links added.
--- NOTE | 2022-04-05 17:30 | NUR ---
PT ATTEMPTED TO GET OUT OF BED, AUTOMATION ENGINEERING MANAGER AT THE BEDSIDE PERFORMING BED BATH AND LINEN CHANGE FOR LARGE BM. PT IN STABLE CONDITION.
--- NOTE | 2022-04-05 19:18 | NUR ---
ENDORSED PT TO NIGHTSHIFT NURSE MOISES FOR CONTINUITY OF CARE. PLAN OF CARE DISCUSSED. PT INSTABLE CONDITION.
--- NOTE | 2022-04-05 22:00 | NUR ---
PT PULLED OUT IV.
[2022-04-05] MEDS ORDERED: VANCOMYCIN 1,000 MG in DEXTROSE 5% 250 ML IV SCH (23:00)
[2022-04-06] VITALS: BP 154/78
[2022-04-06] MEDS: DEXT 5% / NACL 0.45% 1,000 ML IV SCH (01:25)
--- NOTE | 2022-04-06 07:59 | NUR ---
RECEIVED PT CARE AND REPORT FROM MOISES BALTAZAR. PT IS RESTING IN BED SEMI-FOWLERS WITH OU CLOSED. NO VISIBLE S/S OF DISTRESS, DISCOMFORT, PAIN OR SOB. CALL LIGHT WITHIN REACH, ALL NEEDS MET AT THIS TIME. DROPLET PRECAUTIONS MAINTAINED.
[2022-04-06 08:00] VITALS: BP 143/66
[2022-04-06] MEDS: ENOXAPARIN 40 MG/0.4 ML SYR SUBQ SCH (09:21)
[2022-04-06 09:24] LABS: BASOPHILS # (AUTO) 0.1 K/uL (0.00-0.22); BASOPHILS % (AUTO) 0.9 % (0.0-2.0); EOSINOPHILS % (AUTO) 0.6 % (0.0-4.0); HEMATOCRIT 27.7 % (36-52); HEMOGLOBIN 8.4 g/dL (12.0-18.0); LYMPHOCYTES # (AUTO) 1.4 K/uL (2.0-11.5); LYMPHOCYTES % (AUTO) 18.9 % (20.5-51.1); MEAN CORPUSCULAR HEMOGLOBIN 18 pg (27-31); MEAN CORPUSCULAR HGB CONC 30 g/dL (33-37); MEAN CORPUSCULAR VOLUME 60.8 fL (80-94); MONOCYTES # (AUTO) 1.1 K/uL (0.8-1.0); MONOCYTES % (AUTO) 15.3 % (1.7-9.3); NEUTROPHILS # (AUTO) 4.6 K/uL (1.8-7.7); NEUTROPHILS % (AUTO) 64.3 % (42.2-75.2); PLATELET COUNT (AUTO) 565 K/uL (140-450); RED BLOOD CELL COUNT(AUTO) 4.56 MIL/uL (4.20-6.10); WHITE BLOOD COUNT (AUTO) 7.2 K/uL (4.8-10.8)
[2022-04-06 09:46] LABS: ALBUMIN 2.2 g/dL (3.4-5.0); ANION GAP 9.2 (8-16); ASPARTATE AMINOTRANSFERASE 22 U/L (15-37); CARBON DIOXIDE 27.7 mmol/L (21-32); CHLORIDE 107 mmol/L (98-107); CREATININE 0.7 mg/dL (0.6-1.3); GLUCOSE 99 mg/dL (74-106); POTASSIUM 3.9 mmol/L (3.5-5.1); SODIUM SERUM 140 mmol/L (136-145); TOTAL BILIRUBIN 0.5 mg/dL (0.0-1.0); UREA NITROGEN, BLOOD 6 mg/dL (7-18)
--- NOTE | 2022-04-06 15:06 | NUR ---
CALLED [facility] AND GAVE REPORT TO
--- NOTE | 2022-04-06 15:09 | NUR ---
CALLED SON MAYTE WISE AND REPORTED THAT PATIENT WILL BE TRANSFERRED TODAY. PROVIDED FACILITY PHONE NUMBER AND ROOM NUMBER TO MAURICIO.
--- NOTE | 2022-04-06 16:20 | NUR ---
PT PICKED UP BY [facility]. PT LEFT UNIT IN STABLE CONDITION.
--- NOTE | 2022-04-06 16:59 | NUR ---
PHYSICAL THERAPY CO-SIGN The Physical Therapy Progress Notes documented by Head Up Operator have been reviewed. Reviewed/Co-Signed by: Katelynn Stacy Documentation Done by: SHAKIR BONILLA PTA Addendum: 04/06/22 at 1659 by Katelynn Stacy PT Amended: Links added.
== END 2022-04-06 16:25 | DRG 720 ==
LOC: MED 11:15 → MMU 16:40 → MTU 04-01 18:57
PROVIDERS: ADMIT Internal Medicine; ATTEND Internal Medicine
DX: A41.9 Sepsis, unspecified organism (principal); G93.41 Metabolic encephalopathy; U07.1 COVID-19; E87.2 Acidosis; K21.9 Gastro-esophageal reflux disease without esophagitis; E78.5 Hyperlipidemia, unspecified; D50.9 Iron deficiency anemia, unspecified
CPT/HCPCS: 36415; 70450; 71045; 80048; 80053; 80076; 80202; 80305; 81003; 82140; 82553; 83605; 84443; 84484; 85025; 87040; 87081; 92526; 93005; 96361; 96365; 96372; 97110; 97112; 97163-GP; 97530; 99285; G0480; J0696; J1630; J1650; J2060; J3370; J3490; J7030; J7060; Q0092